=== PATIENT | female | born 1985 | race Caucasian/White ===

== ENCOUNTER 2019-01-17 10:43 | Emergency (ER) | payer MEDICAID ==
[~2019-01-17] VITALS: Ht 170.2 cm; Wt 80.5 kg
[2019-01-17 10:50] VITALS: Ht 170.2 cm; Wt 80.5 kg
[2019-01-17 12:56] VITALS: BP 120/70
== END 2019-01-17 12:56 | disposition home or self-care (01) ==
LOC: ED 10:43
DX: M25.50 Pain in unspecified joint (principal); G89.29 Other chronic pain; J45.909 Unspecified asthma, uncomplicated
CPT/HCPCS: J1885